=== PATIENT | male | born 1950 | race Caucasian/White ===

== ENCOUNTER 2024-11-24 06:48 | Day surgery (SDC) | payer OTHER ==
--- NOTE | 2024-11-20 14:29 | ELECTROCARDIOGRAPH REPORT ---
[facility] Test Date: 2024-11-20 Test Time: 14:26:02 Pat Name: ALDEN CISNEROS Department: PRE/OP CARDIOLOGY Patient ID: [id number] Room: Gender: M Branch Operations Coordinator: LIBBY : 1950 Requested By: WHITNEY MEADE Order Number: [id number] Reading MD: Dr. GRACE Ayon Measurements Intervals [place] Rate: 74 P: 0 OK: 0 QRS: -80 QRSD: 112 T: 52 QT: 415 QTc: 461 Interpretive Statements Atrial fibrillation Incomplete right bundle branch block Abnormal R-wave progression, late transition Inferior infarct, old Electronically Signed On 11-20-2024 18:24:[address] GRACE Ayon Please click the below link to view image of tracing.
[2024-11-20 14:44] LABS: BASOPHILS % (AUTO) 0.3 % (0-1); EOSINOPHILS # (AUTO) 0.3 X10'3 (0-0.9); EOSINOPHILS % (AUTO) 4.5 % (0-6); LYMPHOCYTES # (AUTO) 1.5 X10'3 (1.1-4.8); LYMPHOCYTES % (AUTO) 25.4 % (21-51); MEAN CORPUSCULAR HEMOGLOBIN 28.4 PG (27.0-31.0); MEAN CORPUSCULAR HGB CONC 33.6 g/dL (33.0-36.5); MEAN CORPUSCULAR VOLUME 84.7 FL (78-98); MONOCYTES # (AUTO) 0.5 X10'3 (0-0.9); MONOCYTES % (AUTO) 8.3 % (2-12); NEUTROPHILS # (AUTO) 3.7 X10'3 (1.8-7.7); NEUTROPHILS % (AUTO) 61.5 % (42-75); PRE OP HEMATOCRIT 35.4 % (42.0-52.0); PRE OP HEMOGLOBIN 11.9 g/dL (14.0-17.9); PRE OP PLATELET COUNT 149 X10'3 (140-440); RED BLOOD COUNT 4.18 X10'6 (4.70-6.10); RED CELL DISTRIBUTION WIDTH 18.5 % (11.5-14.5)
[2024-11-20 15:01] LABS: ALBUMIN 3.7 G/DL (3.4-5.0); ALBUMIN/GLOBULIN RATIO 1.1 (1.1-1.5); ALKALINE PHOSPHATASE 68 IU/L (46-116); BLOOD UREA NITROGEN 22 MG/DL (7-18); BUN/CREATININE RATIO 18.8 (10.0-20.0); CALCIUM 8.9 MG/DL (8.5-10.1); CHLORIDE 106 MMOL/L (99-107); CREATININE 1.17 MG/DL (0.60-1.10); PRE OP ALT 29 U/L (30-65); PRE OP ANION GAP 6 (8-16); PRE OP AST 18 U/L (10-37); PRE OP BILIRUB, TOTAL 0.5 MG/DL (0.0-1.0); PRE OP GLUCOSE 121 MG/DL (70-104); PRE OP POTASSIUM 4.2 MMOL/L (3.4-5.1); PRE OP SODIUM 141 MMOL/L (135-145); TOTAL CARBON DIOXIDE 29.3 MMOL/L (24-32); eGFR 61 ML/MIN
[2024-11-23] MEDS: DOCUMENT DATE & TIME OF BETA-BLOCKER PO ONE (21:00)
[~2024-11-24] VITALS: Ht 182.9 cm; Wt 137.8 kg
[~2024-11-24 06:48] MED LIST: ALB0.5UD NEB; AMLO5TAB16 PO; APIX5TAB3 PO; CARV25TA3 PO; FERR236T3 PO; FLUT1BLS12 INH; LOSA100T58 PO; METF-900 PO; MONT-40 PO; PANT-47 PO; ROSU20TA98 PO; SERT-434 PO; SPIR1TAB4 PO; SUCR1ORA15 PO; UREA227C4 TOP
[2024-11-24] MEDS ORDERED: LIDOcaine 2% (20mg/ml) 5ml vial ONE (06:57)
[2024-11-24] MEDS ORDERED: BUPIVAcaine/PF 2.5mg/ml (0.25%) 10ml vial ONE (06:58)
[2024-11-24] MEDS ORDERED: BUPIVAcaine 2.5mg/ml inj 50ml vial (contains preservative) ONE (07:07)
[2024-11-24 07:30] VITALS: BP 139/68; PULSE 63; RESP 16; TEMP 97.9; O2SAT 96
[2024-11-24] MEDS ORDERED: morphine 4 MG/ML inj SYRINge IV PRN (07:45)
[2024-11-24] MEDS ORDERED: fentaNYL/PF 50MCG/1 ML 2ML syringe IV PRN ×2 (07:45)
[2024-11-24] MEDS ORDERED: labetalol 5mg/ml 20ml inj. IV PRN (07:45)
[2024-11-24] MEDS ORDERED: morphine 2 MG/ML inj. syringe IV PRN (07:45)
[2024-11-24] MEDS ORDERED: ondansetron/PF 4mg/2ml inj IV PRN (07:45)
[2024-11-24] MEDS: clindamycin-Cleocin 900mg/D5W 50 ML IV ONE (07:49)
[2024-11-24] MEDS: ringers solution, lacted 1,000 ML IV SCH ×2 (07:49→09:44)
[2024-11-24] MEDS: famotidine 20mg tablet PO ONE (07:49)
[2024-11-24] MEDS ORDERED: MIDAZolam 1mg/ml 10ml vial ONE (09:07)
[2024-11-24] MEDS ORDERED: fentaNYL/PF 50MCG/1 ML 2ML syringe ONE (09:07)
[2024-11-24 09:36] VITALS: BP 116/69; PULSE 58; RESP 16; O2SAT 97
[2024-11-24 09:45] VITALS: BP 104/63; PULSE 65; RESP 14; O2SAT 96
[2024-11-24] MEDS ORDERED: LIDOcaine 0.5% (5mg/ml) 50ml vial ONE (09:49)
[2024-11-24] MEDS ORDERED: LIDOcaine 1%/PF 5ML 10 MG/ML VIAL ONE (09:49)
[2024-11-24] MEDS ORDERED: ketorolac trometh 30MG/ML vial 30 MG/ML VIAL ONE (09:49)
[2024-11-24 09:55] VITALS: BP 109/76; PULSE 67; RESP 14; O2SAT 95
[2024-11-24 10:05] VITALS: BP 101/62; PULSE 68; RESP 14; O2SAT 93
[2024-11-24 10:15] VITALS: BP 104/66; PULSE 71; RESP 16; O2SAT 93
--- NOTE | 2024-11-24 14:52 | OPERATIVE REPORT ---
Operative Report Providers to ~ Date of Procedure: Nov 24, 2024 Pre-Operative Diagnosis: Right carpal and cubital tunnel syndrome Post-Operative Diagnosis SAME as PRE-Op Procedure Performed Right open carpal tunnel release, right cubital tunnel release Surgeon: Patrick Martin MD Job Forwarder None Anesthesiologist: Jim Rojo Type of Anesthesia: Regional Findings: Estimated Blood Loss: None Specimen Removed: None Description of Procedure: INDICATIONS: This patient is a 74 year old with right carpal and cubital tunnel syndrome refractory to conservative treatment. Surgery is indicated for relief of symptoms. Procedure- The risks, benefits, expected results, and possible complications of the planned procedure had been explained to the patient and informed consent obtained PROCEDURE: After the block was given the arm was prepped and draped in the usual manner. An incision was made in the palm ulnar to the thenar crease in line with the ring finger. Blunt dissection was performed through deeper tissues until the transverse carpal ligament was encountered. The carpal tunnel was entered with an incision in line with the skin incision. The nerve was protected and the ligament was released distally and proximally. The forearm fascia proximal to the incision was released using bunt Metzenbaum scissors. The nerve was decompressed at this point. The wound was irrigated and the small bleeders were cauterized. The wound was then closed with 5-O nylon sutures. Attention was then turned to the elbow. An incision was made over the medial elbow posterior to the epicondyle, through skin. Blunt dissection was done to the cubital tunnel. Vega's ligament was opened, the nerve was identified and protected. The nerve was decompressed proximally and distally 6 cm in each direction. It was decompressed at this time. Small bleeders were cauterized , the wound was closed with vicryl and monocryl suture, followed by Steri-strips. Marcaine was injected at both sites and a sterile dressing was applied. The tourniquet was released and the hand perfused well. The patient was taken to the recovery room in stable condition and tolerated the procedure well. PATRICK MARTIN Jr., MD Nov 24, 2024 14:52
== END 2024-11-24 10:46 | disposition home or self-care (01) ==
LOC: PAS 06:48
PROVIDERS: ATTEND Orthopaedic Surgery Hand Surgery
DX: G56.01 Carpal tunnel syndrome, right upper limb (principal); G56.21 Lesion of ulnar nerve, right upper limb; I48.91 Unspecified atrial fibrillation; I45.10 Unspecified right bundle-branch block; I25.2 Old myocardial infarction; E78.00 Pure hypercholesterolemia, unspecified; I10 Essential (primary) hypertension; E11.9 Type 2 diabetes mellitus without complications; E66.01 Morbid (severe) obesity due to excess calories; Z98.49 Cataract extraction status, unspecified eye; K21.9 Gastro-esophageal reflux disease without esophagitis; F41.9 Anxiety disorder, unspecified; F32.A Depression, unspecified; G47.30 Sleep apnea, unspecified; Z79.899 Other long term (current) drug therapy; Z88.0 Allergy status to penicillin; F43.10 Post-traumatic stress disorder, unspecified; Z87.891 Personal history of nicotine dependence; Z68.41 Body mass index [BMI] 40.0-44.9, adult
CPT/HCPCS: 36415; 64718; 64721; 80053; 82948; 85025; 93005; J1885; J2250; J3010; J3490; J7030; J7120; Z7506; Z7512; A4215; A6449; J2003